=== PATIENT | male | born 1975 | race African-American/Black ===

== ENCOUNTER 2018-08-01 12:19 | Inpatient (IN) ==
[2018-08-01] MEDS ORDERED: SODIUM CHLORIDE 0.9% 1000ML 1,000 ML IV ONE (12:34)
[2018-08-01] MEDS ORDERED: ONDANSETRON INJ 2 MG/ML 2 ML VIAL IV STA (12:34)
[2018-08-01 13:02] LABS: Basophils # (auto) 0.02 K/uL (0-0.2); Basophils % (auto) 0.3 %; Eosinophils # (auto) 0.29 K/uL (0-0.5); Eosinophils % (auto) 4.2 %; Hematocrit (blood only) 40.8 % (42-52); Hemoglobin 14.9 g/dL (14.0-18.0); Immature Granulocytes # (auto) 0.01 K/uL (0.00-0.02); Immature Granulocytes % (auto) 0.1 %; Lymphocytes # (auto) 1.61 K/uL (1.2-3.4); Lymphocytes % (auto) 23.5 %; Mean Corpuscular Hgb Conc 36.5 g/dL (32-36); Mean Corpuscular Volume 79.5 fL (80-100); Mean Platelet Volume 11.2 fL (7.4-10.4); Monocytes # (auto) 0.43 K/uL (0.11-0.59); Monocytes % (auto) 6.3 %; Neutrophils % (auto) 65.6 %; Platelet Count 309 K/uL (130-400); RDW Coefficient of Variation 12.2 % (11.5-14.5); RDW Standard Deviation 35.3 fL (36.4-46.3); Red Blood Count 5.13 M/uL (4.7-6.1); White Blood Count 6.86 K/uL (4.8-10.8)
[2018-08-01 13:31] LABS: BUN Creatinine Ratio 20.3 (10-20); Calcium 10.2 mg/dl (8.5-10.1); Creatinine Clr Calc Pharmacy 43.8 ml/min; Est GFR (African American) 43.8; Est GFR (Non-African American) 37.8
[2018-08-01 13:57] LABS: Appearance Urine Clear (Clear); Bilirubin Urine Negative (Negative); Blood Urine Trace (Negative); Color Urine Yellow; Glucose Urine UA 3+ (Negative); Ketones Urine 2+ (Negative); Leukocyte Esterase Urine Negative (Negative); Nitrite Urine Negative (Negative); Protein Urine Negative (Negative); Specific Gravity Urine 1.015 (1.000-1.030); Urobilinogen Urine Negative (Negative); pH Urine 5.5 (4.5-7.5)
[2018-08-01 14:08] LABS: Beta-Hydroxybutyrate 58.01 mg/dl (0.2-2.81)
[2018-08-01] MEDS ORDERED: SEVERE STRESS LEVEL ONE (14:10)
[2018-08-01] MEDS ORDERED: DKA GOAL RANGE 150-250 mg/dl ONE (14:10)
[2018-08-01 14:11] LABS: Bacteria Urine Negative (Negative); Epithelial Cell Urine 0-5 /lpf (0-5); RBC Urine 0-4 /hpf (0-4); WBC Urine 0-5 /hpf (0-5)
[2018-08-01] MEDS ORDERED: SODIUM CHLORIDE 0.9% 1000ML 1,000 ML IV SCH (14:15)
[2018-08-01] MEDS ORDERED: NSS + 20MEQ KCL 20 MEQ/1,000 ML BAG IV SCH (14:30)
[2018-08-01] MEDS: INSULIN REGULAR 250 UNITS in SODIUM CHLORIDE 0.9% 247.5 ML IV SCH (14:51)
[2018-08-01 15:06] LABS: Base Excess VBG -2.5 mEq/L; HCO3 VBG 25 mmol/L; PCO2 VBG 51 mmHg (38-50); PO2 VBG 31 mmHg
--- NOTE | 2018-08-01 15:12 | History & Physical Report ---
Date of Service August 01, 2018 Assessment & Plan (1) Hyperosmolarity due to secondary diabetes mellitus: Pt with hx recently diagnosed DM II and new onset metformin use presented to ER with c/o weakness, fatigue x 3 days with hyperglycemia readings at home. Pt had been fasting for adan starting 07/22/18 and stopped fasting 2-3 days ago upon symptom onset. In ER pt afebrile, P: 112 down to 88, R: 20, BP: 148/105, 100% on RA WBC: 6.8, H/H: 14.9/40.8, Na corrected to 135 with glucose of 604, CO2: 25, K: 4.0, A, beta-hydroxybutyric acid: 58, UA: 3+ glucose, 2+ ketones; VBG: pH: 7.3, pCO2: 51, pO2: 31, HCO3: 25 HHS with starvation ketosis Following DKA/HSS protocol pharmacy glycemic consult serial prp to monitor electrolytes repeat phosphorus and magnesium labs npo until gap closed monitor vbgs (2) YULIA (acute kidney injury): Cr: 2.06. Baseline Cr: 1.1 with GFR >60 -IVF -monitor renal functions -avoid nephrotoxic agents when possible (3) Diabetes mellitus, type II: A1c: 7.6 on 06/20/18 -hold metformin -insulin as above (4) HTN (hypertension): BP elevated in ER at 148/105, down to 132/75 -hold lisinopril, HCTZ with YULIA -continue metoprolol (5) Dyslipidemia: -continue atorvastatin DVT Prophylaxis -SCDs Follows with Dr Perez for routine care Pt was seen with Dr Giles. See addendum History of Present Illness Chief Complaint: Pt is 43 y/o M with PMH HTN, DM II presented to ER with c/o weakness and hyperglycemia. Pt reports on 07/22/18 he started fasting for ada. Pt states was feeling a little more tired. The past 3 days patient has reported increased fatigue and generalized weakness. Also complaining of urinary frequency, some blurry vision. He states he took his blood sugars at home and the meter was reading "high". Patient states was continuing to take his metformin. He stopped fasting 2-3 days ago. Patient was started on HCTZ 25 mg of metoprolol 50 mg in 06/2017 for HTN. He was then started on metformin 500 mg twice daily x one week then 1000mg twice daily and lisinopril 10mg daily on 06/18 06/04. Patient states when started taking metformin he was having some abdominal cramping which has improved. Reports he has been having some constipation last BM 4 days ago. Denies any nausea or vomiting. Denies fever/chills, diaphoresis, HOLLIDAY, dizziness, syncope, neck pain, CP, SOB, orthopnea, palpitations, cough, sore throat, choking, otalgia, rhinorrhea, paresthesias, weakness, extremity weakn ess, extremity edema, rashes, hematuria, dysuria. Primary Care Provider: Pat Perez DO Allergies Allergy/AdvReac Type Severity Reaction Status Date / Time hydroxychloroquine Allergy Unknown Verified 08/01/18 13:49 Home Medications Home Medications Medication Instructions Recorded Confirmed Type aspirin [Aspir-81] 81 mg PO QAM 08/01/18 08/01/18 History atorvastatin 40 mg PO QAM 08/01/18 08/01/18 History hydrochlorothiazide 25 mg PO QAM 08/01/18 08/01/18 History lisinopril 10 mg PO QAM 08/01/18 08/01/18 History metformin 1,000 mg PO BIDM 08/01/18 08/01/18 History metoprolol succinate 50 mg PO QAM 08/01/18 08/01/18 History Past Med/Surg History Medical History Dyslipidemia (Chronic) Diabetes mellitus, type II (Chronic) HTN (hypertension) (Chronic) Shoulder pain, right Surgical History No history of previous surgery (Chronic) Family History Other Diabetes Social History Preferred Language: [place] Feels Safe at Home: Yes Smoking Status: Former smoker Hx Alcohol Use: No Hx Substance Use: No Review of Systems Review of Systems: All systems reviewed & are unremarkable except as noted in HPI & below Physical Exam Physical Exam: General: no acute distress, WDWN Head: normocephalic, atraumatic Eyes: PERRL, EOM's intact, conjunctiva non-injected, anicteric ENT: normal inspection external ears, nose, mucous membranes dry Neck: supple, trachea midline Lungs: clear, no respiratory distress, no wheezing/rhonchi/rales CV: RRR, no murmur, no pretibial edema Abd: normal BS, soft, non-tender Ext: no cyanosis, no calf tenderness Neuro: A&O x 3, no focal deficits noted, normal affect Skin: warm, dry Results & Data Vital Signs (Past 12 Hours) Vital Signs Temp Pulse Pulse Resp BP BP Pulse Ox 08/01/18 14:55 88 17 132/75 98 08/01/18 14:31 84 14 176/101 H 97 08/01/18 14:30 86 14 94 08/01/18 14:01 90 15 142/94 H 98 08/01/18 14:00 72 12 08/01/18 13:31 87 15 96 08/01/18 13:30 82 22 96 08/01/18 13:02 90 22 99 08/01/18 13:01 88 20 116/82 99 08/01/18 13:00 97 H 29 H 98 08/01/18 12:56 89 13 124/92 98 08/01/18 12:51 85 16 97 08/01/18 12:40 83 95 H 19 124/92 124/92 98 08/01/18 12:34 36.5 C 08/01/18 12:22 112 H 20 148/105 H 100 Laboratory Results Short CBC 08/01/18 Range/Units 12:48 WBC 6.86 (4.8-10.8) K/uL Hgb 14.9 (14.0-18.0) g/dL Hct 40.8 L (42-52) % Plt Count 309 (130-400) K/uL BMP 08/01/18 12:48 Sodium 127 L Potassium 4.0 Chloride 84 L Carbon Dioxide 25 BUN 42 H Creatinine 2.06 H Glucose 604 H* Calcium 10.2 H Urine 08/01/18 Range/Units 13:45 Urine Color Yellow Urine Appearance Clear (Clear) Urine pH 5.5 (4.5-7.5) Ur Specific [place] 1.015 (1.000-1.030) Urine Protein Negative (Negative) Urine Glucose (UA) 3+ H (Negative) Supervising Physician Co-Signing Physician Notes Patient is a 43-year-old male with history of diabetes, hypertension and other problems presents with history of generalized weakness and elevated blood sugar levels since last few days. He was fasting for Ramadan initially but felt very weak and tired so started eating again since last 3 days. He also states having increased urinary frequency, blurred vision. He was recently diagnosed to have diabetes by his PCP and was started on metformin. Denies any chest pain, shortness of breath, fever, chills, dysuria, diarrhea, abdominal pain. Patient was noted to have elevated creatinine levels at 2.06, his blood sugar levels are in 600s. His anion gap is elevated at 18. Bicarbonate levels are within normal range. On exam patient is moderately built nourished, no apparent distress, normocephalic atraumatic, lungs are clear to auscultation, S1-S2, no murmur, abdomen soft nontender, neurologically no focal deficits, no pedal edema. Patient is admitted for management of HHS, YULIA, could have component of starvation ketosis. Agree with started Insulin ggt, IV fluids. Monitor electrolytes, renal function and acidosis. Keep him NPO for now. Agree with holding JEANNE, Metformin and HCTZ. Pharmacy consulted for glycemic management.
[2018-08-01 15:17] LABS: Oxygen Saturation VBG < 60.0 %
[2018-08-01 15:40] LABS: BUN Creatinine Ratio 21.6 (10-20); Calcium 9.7 mg/dl (8.5-10.1); Est GFR (African American) 52.6; Est GFR (Non-African American) 45.4; Phosphorus 5.5 mg/dl (2.5-4.9)
--- NOTE | 2018-08-01 16:35 | Emergency Department Note ---
Entered by Justo Cuenca acting as a scribe for History of Present Illness General Chief complaint: Weakness Stated complaint: weakness, blurry eyes, nausea, cold Time Seen by Provider: 08/01/18 12:28 Source: patient Mode of arrival: ambulatory History of Present Illness Provider complaint: Weakness Onset (ago): day(s) 7 Location: head Radiation: abdomen Pain Consistency: + constant Quality: + other (Weakness) Associated symptoms: + cough, + nausea/vomiting and + weakness Patient is a 43 year old male who presents himself to the ER with complaint of weakness beginning seven days ago. Patient is currently fasting for the month of in in the Islamic zoroastrianism. Before adan started he was diagnosed with diabetes. For the last weak patient has been feeling severely weak and having constant associated symptoms of nausea and coughs. Patient reports not having an appetite and that he has not fallen or hit his head. He states he has been having difficulty with bowel movements and that the pain has been radiating to his abdomen. Home Medications Home Medications Medication Instructions Recorded Confirmed Type aspirin [Aspir-81] 81 mg PO QAM 08/01/18 08/01/18 History atorvastatin 40 mg PO QAM 08/01/18 08/01/18 History hydrochlorothiazide 25 mg PO QAM 08/01/18 08/01/18 History lisinopril 10 mg PO QAM 08/01/18 08/01/18 History metformin 1,000 mg PO BIDM 08/01/18 08/01/18 History metoprolol succinate 50 mg PO QAM 08/01/18 08/01/18 History Allergies Allergy/AdvReac Type Severity Reaction Status Date / Time hydroxychloroquine Allergy Unknown Verified 08/01/18 13:49 Past Med/Surg History Medical History Dyslipidemia (Chronic) Diabetes mellitus, type II (Chronic) HTN (hypertension) (Chronic) Shoulder pain, right Surgical History No history of previous surgery (Chronic) Family History Other Diabetes Social History Preferred Language: Bolivian Feels Safe at Home: Yes Smoking Status: Former smoker Hx Alcohol Use: No Hx Substance Use: No Review of Systems See HPI for pertinent positives & negatives. and A total of 10 systems reviewed and were otherwise negative Physical Exam Vital Signs Vital Signs - 24 hr 08/01/18 12:22 08/01/18 12:34 08/01/18 12:40 Temperature 36.5 C Temperature Source Oral Sepsis Recent Fever Within 48 Hours No Sepsis New/Unexplained Change in Mental Status No Sepsis Action Taken by Nursing No Action Required Pulse Rate 112 H 83 Pulse Rate [Left Finger] 95 H Pulse Rate from SpO2 Sensor 85 Pulse Rhythm Regular Pulse Rhythm [Left Finger] Regular Pulse Strength Normal Respiratory Rate 20 19 Respiratory Effort / Characteristics Non-Labored Spontaneous Non-Labored Respiratory Depth Normal Normal Respiratory Pattern Regular Regular Blood Pressure 148/105 H 124/92 Blood Pressure [Left Arm] 124/92 Blood Pressure Mean 119 102 Blood Pressure Mean [Left Arm] 102 Blood Pressure Position Sitting Pulse Oximetry 100 98 Oxygen Delivery Method Room Air 08/01/18 12:51 08/01/18 12:56 08/01/18 13:00 Temperature Temperature Source Sepsis Recent Fever Within 48 Hours Sepsis New/Unexplained Change in Mental Status Sepsis Action Taken by Nursing Pulse Rate 85 89 97 H Pulse Rate [Left Finger] Pulse Rate from SpO2 Sensor 85 89 99 H Pulse Rhythm Pulse Rhythm [Left Finger] Pulse Strength Respiratory Rate 16 13 29 H Respiratory Effort / Characteristics Respiratory Depth Respiratory Pattern Blood Pressure 124/92 Blood Pressure [Left Arm] Blood Pressure Mean 102 Blood Pressure Mean [Left Arm] Blood Pressure Position Pulse Oximetry 97 98 98 Oxygen Delivery Method 08/01/18 13:01 08/01/18 13:02 08/01/18 13:30 Temperature Temperature Source Sepsis Recent Fever Within 48 Hours Sepsis New/Unexplained Change in Mental Status Sepsis Action Taken by Nursing Pulse Rate 88 90 82 Pulse Rate [Left Finger] Pulse Rate from SpO2 Sensor 90 92 H 82 Pulse Rhythm Pulse Rhythm [Left Finger] Pulse Strength Respiratory Rate 20 22 22 Respiratory Effort / Characteristics Respiratory Depth Respiratory Pattern Blood Pressure 116/82 Blood Pressure [Left Arm] Blood Pressure Mean 93 Blood Pressure Mean [Left Arm] Blood Pressure Position Pulse Oximetry 99 99 96 Oxygen Delivery Method 08/01/18 13:31 08/01/18 14:00 08/01/18 14:01 Temperature Temperature Source Sepsis Recent Fever Within 48 Hours Sepsis New/Unexplained Change in Mental Status Sepsis Action Taken by Nursing Pulse Rate 87 72 90 Pulse Rate [Left Finger] Pulse Rate from SpO2 Sensor 86 88 Pulse Rhythm Pulse Rhythm [Left Finger] Pulse Strength Respiratory Rate 15 12 15 Respiratory Effort / Characteristics Respiratory Depth Respiratory Pattern Blood Pressure 142/94 H Blood Pressure [Left Arm] Blood Pressure Mean 49 110 Blood Pressure Mean [Left Arm] Blood Pressure Position Pulse Oximetry 96 98 Oxygen Delivery Method 08/01/18 14:30 08/01/18 14:31 08/01/18 14:32 Temperature Temperature Source Sepsis Recent Fever Within 48 Hours Sepsis New/Unexplained Change in Mental Status Sepsis Action Taken by Nursing Pulse Rate 86 84 89 Pulse Rate [Left Finger] Pulse Rate from SpO2 Sensor 93 H 84 91 H Pulse Rhythm Pulse Rhythm [Left Finger] Pulse Strength Respiratory Rate 14 14 16 Respiratory Effort / Characteristics Respiratory Depth Respiratory Pattern Blood Pressure 176/101 H Blood Pressure [Left Arm] Blood Pressure Mean 126 Blood Pressure Mean [Left Arm] Blood Pressure Position Pulse Oximetry 94 97 96 Oxygen Delivery Method 08/01/18 14:55 08/01/18 15:00 08/01/18 15:01 Temperature Temperature Source Sepsis Recent Fever Within 48 Hours Sepsis New/Unexplained Change in Mental Status Sepsis Action Taken by Nursing Pulse Rate 83 87 85 Pulse Rate [Left Finger] 88 Pulse Rate from SpO2 Sensor 86 85 87 Pulse Rhythm Pulse Rhythm [Left Finger] Pulse Strength Respiratory Rate 15 17 14 Respiratory Effort / Characteristics Respiratory Depth Respiratory Pattern Blood Pressure 132/75 122/79 Blood Pressure [Left Arm] 132/75 Blood Pressure Mean 94 93 Blood Pressure Mean [Left Arm] 94 Blood Pressure Position Pulse Oximetry 98 96 99 Oxygen Delivery Method Room Air Physical Exam GENERAL: He is oriented to person, place, and time. He appears well-developed and well-nourished. He does not appear distressed. ____ HENT: Exam performed. - Head: Normocephalic and atraumatic. - Right Ear: External ear normal. No mastoid tenderness. - Left Ear: External ear normal. No mastoid tenderness. - Mouth/Throat: The oropharynx is clear and moist. No trismus in the jaw. No dental abscesses or uvula swelling. No oropharyngeal exudate or tonsillar abscesses. ____ EYES: Conjunctivae and EOM are normal. Pupils are equal, round, and reactive to light. Right eye exhibits no discharge. Left eye exhibits no discharge. No scleral icterus. ____ NECK: Normal range of motion. Neck supple. No JVD present. No spinous process tenderness present. No carotid bruit present. No rigidity. No tracheal deviation and normal range of motion present. No Brudzinski's sign and no Kernig's sign noted. ____ CV: Tachycardic. There is no peripheral edema. Palpable radial pulses bue. ____ PULM/CHEST: Effort normal and breath sounds normal. No respiratory distress. No stridor. He has no wheezes. He has no rales. - Chest Wall: He exhibits no tenderness. ____ ABD: The abdomen is soft. Bowel sounds are normal. He has no distension. No mass is present. There is no tenderness. There is no rebound, no guarding, no Murp hy's sign and no tenderness at McBurney's point. Rovsig negative MUSC/SKEL: Normal range of motion. There is no peripheral edema, tenderness or deformity. LYMPH: No cervical adenopathy. ____ NEURO: He is alert and oriented to person, place, and time. He has normal strength. No cranial nerve deficit or sensory deficit. Coordination and gait normal. GCS eye subscore is 4. GCS verbal subscore is 5. GCS motor subscore is 6. cerbellar tests wnl. ____ SKIN: Skin is warm and dry. He is not diaphoretic. ____ PSYCH: He has a normal mood and affect. His behavior is normal. Judgment and thought content normal. ____ Course 1229: The patient was evaluated in room A9. A complete history and physical exam was performed. 1240: Patient's POC glucose is critical high and unreadable on POC machine. 1412: The patients vital signs are stable. IV fluids have been administered not 1 L normal saline bolus. Labs show a glucose of 604, sodium 127, creatinine 2.06, anion gap of 18. Patient is in DKA. Patient will be started on insulin drip and be given repeat normal saline fluids with 20 mg once of KCl. I spoke to Ethel Patel PA-C regarding admitting the patient. She would like a venous blood gas to be done to see if the patient needs to go to the ICU. The patient will be admitted under the care of Dr. Giles. 1433: I spoke with Dr. Giles. The patient is stable to be admitted to telemetry. Reevaluation(s) Reevaluation #3: Ethel Patel PA-C Time: 14:12 Administered Medications Insulin Human Regular 250 (units/ Sodium Chloride) 250 mls @ 7 mls/hr IV .Q24H RAVI; Protocol Stop: 08/31/18 14:14 Last Titration: 08/01/18 16:10 Dose: 8.4 units/hr, 8.4 mls/hr Documented by: [id number] Cosigned by: [id number] Admin: 08/01/18 14:51 Dose: 7 units/hr, 7 mls/hr Documented by: [id number] Cosigned by: [id number] Potassium Chloride/Sodium Chloride (Normal Saline W/20 Meq Kcl) 20 meq in 1,000 mls @ 125 mls/hr IV .Q8H RAVI Stop: 08/31/18 14:29 Last Admin: 08/01/18 14:52 Dose: 125 mls/hr Documented by: [id number] Discontinued Medications Sodium Chloride (Nss 1000ml) 1,000 mls @ 999 mls/hr IV .Q1H1M ONE Stop: 08/01/18 13:34 Last Infusion: 08/01/18 14:54 Dose: 0 mls/hr Documented by: [id number] Admin: 08/01/18 13:02 Dose: 999 mls/hr Documented by: [id number] Ondansetron HCl (Zofran) 4 mg IV NOW STA Stop: 08/01/18 12:35 Last Admin: 08/01/18 13:04 Dose: 4 mg Documented by: [id number] Medical Decision Making Medical Records Attestation: I reviewed the patient's medical records. Home Medications Current Medication List: was personally reviewed by me Laboratory Data Attestation: I reviewed the patient's lab results. Result diagrams: 08/01/18 12:48 08/01/18 14:54 Lab Results 08/01/18 08/01/18 08/01/18 Range/Units 12:40 12:48 12:48 WBC 6.86 (4.8-10.8) K/uL RBC 5.13 (4.7-6.1) M/uL Hgb 14.9 (14.0-18.0) g/dL Hct 40.8 L (42-52) % MCV 79.5 L (80-100) fL MCH 29.0 (25-34) pg MCHC 36.5 H (32-36) g/dL RDW Std Deviation 35.3 L (36.4-46.3) fL RDW Coeff of Mandy 12.2 (11.5-14.5) % Plt Count 309 (130-400) K/uL MPV 11.2 H (7.4-10.4) fL Immature Gran % (Auto) 0.1 % Neut % (Auto) 65.6 % Lymph % (Auto) 23.5 % [place] % (Auto) 6.3 % Eos % (Auto) 4.2 % Baso % (Auto) 0.3 % Immature Gran # (Auto) 0.01 (0.00-0.02) K/uL Neut # (Auto) 4.50 (1.4-6.5) K/uL Lymph # (Auto) 1.61 (1.2-3.4) K/uL Victoria # (Auto) 0.43 (0.11-0.59) K/uL Eos # (Auto) 0.29 (0-0.5) K/uL Baso # (Auto) 0.02 (0-0.2) K/uL VBG pH (7.36-7.41) VBG pCO2 (38-50) mmHg VBG pO2 mmHg VBG HCO3 mmol/L VBG O2 Saturation % VBG Base Excess mEq/L Barometric Pressure mm/Hg Sodium 127 L (136-145) mmol/L Potassium 4.0 (3.5-5.1) mmol/L Chloride 84 L (98-107) mmol/L Carbon Dioxide 25 (21-32) mmol/L Anion Gap 18.0 H (3-11) BUN 42 H (7-18) mg/dl Creatinine 2.06 H (0.6-1.4) mg/dl Est Cr Clr Drug Dosing 43.8 ml/min Est GFR ( Amer) 43.8 Est GFR (Non-Af Amer) 37.8 BUN/Creatinine Ratio 20.3 H (10-20) Glucose 604 H* (70-99) mg/dl POC Glucose > 600 H* (70-99) Calcium 10.2 H (8.5-10.1) mg/dl Phosphorus (2.5-4.9) mg/dl Magnesium (1.8-2.4) mg/dl Beta-Hydroxybutyric Acd 58.01 H (0.2-2.81) mg/dl Specimen Hemolysis Urine Color Urine Appearance (Clear) Urine pH (4.5-7.5) Ur Specific [place] (1.000-1.030) Urine Protein (Negative) Urine Glucose (UA) (Negative) Urine Ketones (Negative) Urine Blood (Negative) Urine Nitrite (Negative) Urine Bilirubin (Negative) Urine Urobilinogen (Negative) Ur Leukocyte Esterase (Negative) Urine RBC (0-4) /hpf Urine WBC (0-5) /hpf Ur Epithelial Cells (0-5) /lpf Urine Bacteria (Negative) 08/01/18 08/01/18 08/01/18 Range/Units 13:45 14:06 14:46 WBC (4.8-10.8) K/uL RBC (4.7-6.1) M/uL Hgb (14.0-18.0) g/dL Hct (42-52) % MCV (80-100) fL MCH (25-34) pg MCHC (32-36) g/dL RDW Std Deviation (36.4-46.3) fL RDW Coeff of Mandy (11.5-14.5) % Plt Count (130-400) K/uL MPV (7.4-10.4) fL Immature Gran % (Auto) % Neut % (Auto) % Lymph % (Auto) % [place] % (Auto) % Eos % (Auto) % Baso % (Auto) % Immature Gran # (Auto) (0.00-0.02) K/uL Neut # (Auto) (1.4-6.5) K/uL Lymph # (Auto) (1.2-3.4) K/uL [place] # (Auto) (0.11-0.59) K/uL Eos # (Auto) (0-0.5) K/uL Baso # (Auto) (0-0.2) K/uL VBG pH 7.30 L (7.36-7.41) VBG pCO2 51 H (38-50) mmHg VBG pO2 31 mmHg VBG HCO3 25 mmol/L VBG O2 Saturation < 60.0 % VBG Base Excess -2.5 mEq/L Barometric Pressure 728.5 mm/Hg Sodium (136-145) mmol/L Potassium (3.5-5.1) mmol/L Chloride (98-107) mmol/L Carbon Dioxide (21-32) mmol/L Anion Gap (3-11) BUN (7-18) mg/dl Creatinine (0.6-1.4) mg/dl Est Cr Clr Drug Dosing ml/min Est GFR ( Amer) Est GFR (Non-Af Amer) BUN/Creatinine Ratio (10-20) Glucose (70-99) mg/dl POC Glucose 555 H* (70-99) Calcium (8.5-10.1) mg/dl Phosphorus (2.5-4.9) mg/dl Magnesium (1.8-2.4) mg/dl Beta-Hydroxybutyric Acd (0.2-2.81) mg/dl Specimen Hemolysis Urine Color Yellow Urine Appearance Clear (Clear) Urine pH 5.5 (4.5-7.5) Ur Specific [place] 1.015 (1.000-1.030) Urine Protein Negative (Negative) Urine Glucose (UA) 3+ H (Negative) Urine Ketones 2+ H (Negative) Urine Blood Trace H (Negative) Urine Nitrite Negative (Negative) Urine Bilirubin Negative (Negative) Urine Urobilinogen Negative (Negative) Ur Leukocyte Esterase Negative (Negative) Urine RBC 0-4 (0-4) /hpf Urine WBC 0-5 (0-5) /hpf Ur Epithelial Cells 0-5 (0-5) /lpf Urine Bacteria Negative (Negative) 08/01/18 08/01/18 08/01/18 Range/Units 14:54 15:44 15:53 WBC (4.8-10.8) K/uL RBC (4.7-6.1) M/uL Hgb (14.0-18.0) g/dL Hct (42-52) % MCV (80-100) fL MCH (25-34) pg MCHC (32-36) g/dL RDW Std Deviation (36.4-46.3) fL RDW Coeff of Mandy (11.5-14.5) % Plt Count (130-400) K/uL MPV (7.4-10.4) fL Immature Gran % (Auto) % Neut % (Auto) % Lymph % (Auto) % [place] % (Auto) % Eos % (Auto) % Baso % (Auto) % Immature Gran # (Auto) (0.00-0.02) K/uL Neut # (Auto) (1.4-6.5) K/uL Lymph # (Auto) (1.2-3.4) K/uL [place] # (Auto) (0.11-0.59) K/uL Eos # (Auto) (0-0.5) K/uL Baso # (Auto) (0-0.2) K/uL VBG pH (7.36-7.41) VBG pCO2 (38-50) mmHg VBG pO2 mmHg VBG HCO3 mmol/L VBG O2 Saturation % VBG Base Excess mEq/L Barometric Pressure mm/Hg Sodium 128 L (136-145) mmol/L Potassium 4.0 (3.5-5.1) mmol/L Chloride 87 L (98-107) mmol/L Carbon Dioxide 24 (21-32) mmol/L Anion Gap 17.0 H (3-11) BUN 38 H (7-18) mg/dl Creatinine 1.77 H (0.6-1.4) mg/dl Est Cr Clr Drug Dosing 51.0 ml/min Est GFR ( Amer) 52.6 Est GFR (Non-Af Amer) 45.4 BUN/Creatinine Ratio 21.6 H (10-20) Glucose 494 H* (70-99) mg/dl POC Glucose 504 H* 489 H* (70-99) Calcium 9.7 (8.5-10.1) mg/dl Phosphorus 5.5 H (2.5-4.9) mg/dl Magnesium 3.0 H (1.8-2.4) mg/dl Beta-Hydroxybutyric Acd (0.2-2.81) mg/dl Specimen Hemolysis Urine Color Urine Appearance (Clear) Urine pH (4.5-7.5) Ur Specific [place] (1.000-1.030) Urine Protein (Negative) Urine Glucose (UA) (Negative) Urine Ketones (Negative) Urine Blood (Negative) Urine Nitrite (Negative) Urine Bilirubin (Negative) Urine Urobilinogen (Negative) Ur Leukocyte Esterase (Negative) Urine RBC (0-4) /hpf Urine WBC (0-5) /hpf Ur Epithelial Cells (0-5) /lpf Urine Bacteria (Negative) Imaging Data Attestation: I personally reviewed and interpreted this imaging study as follows: ECG Data Attestation: I personally reviewed and interpreted this ECG as follows: Indication: other (Weakness) Rate (beats per minute): 85 Rhythm: normal sinus Findings: + other (T wave inversion in lead 3 and AVF ); no ST elevation Blood Pressure Blood Pressure Findings: Normal blood pressure [facility] Narrative 1229: The patient was evaluated in room A9. A complete history and physical exam was performed. 1240: Patient's POC glucose is critical high and unreadable on POC machine. 1412: The patients vital signs are stable. IV fluids have been administered not 1 L normal saline bolus. Labs show a glucose of 604, sodium 127, creatinine 2.06, anion gap of 18. Patient is in DKA. Patient will be started on insulin drip and be given repeat normal saline fluids with 20 mg once of KCl. I spoke to Ethel Patel PA-C regarding admitting the patient. She would like a venous blood gas to be done to see if the patient needs to go to the ICU. The patient will be admitted under the care of Dr. Giles. 1433: I spoke with Dr. Giles. The patient is stable to be admitted to telemetry. Impression & Plan DKA (diabetic ketoacidoses), Acute kidney injury Critical Care Time I have personally spent 54 minutes of critical care time in the direct management of this patient. This includes bedside care, interpretation of diagnostic studies, and testing, discussion with consultants, patient, and family members, and other required patient management activities. This 54 minutes is in excess of all separately billable procedures. Critical Care Time: Yes Total Critical Care Time: 54 Discharge Plan Visit Data Chief Complaint: Weakness Stated Complaint: weakness, blurry eyes, nausea, cold ED Provider: Abel Awad Discharge Problem: DKA (diabetic ketoacidoses), Acute kidney injury Patient Disposition: Being Evaluated by Hospitalist Forms Stand Alone Forms: My [facility] Prescriptions Prescriptions: No Action metoprolol succinate 50 mg tablet extended release 24 hr 50 mg PO QAM RF: 0 aspirin [Aspir-81] 81 mg Tablet,Delayed Release (Dr/Ec) 81 mg PO QAM RF: 0 lisinopril 10 mg tablet 10 mg PO QAM RF: 0 hydrochlorothiazide 25 mg tablet 25 mg PO QAM RF: 0 atorvastatin 40 mg tablet 40 mg PO QAM RF: 0 metformin 500 mg tablet 1,000 mg PO BIDM RF: 0 Referrals Referrals: Pat Perez DO [Primary Care Provider] - Discharge Problem: DKA (diabetic ketoacidoses) Qualifiers: Diabetes mellitus type: type 2 Diabetes mellitus complication detail: without coma Qualified Code(s): E11.10 - Type 2 diabetes mellitus with ketoacidosis without coma The scribe's documentation has been prepared under my direction and personally reviewed by me in its entirety. I confirm that the note above accurately reflects all work, treatment, procedures, and medical decision making performed by me.
[2018-08-01] MEDS ORDERED: PHARMACY GLYCEMIC MGMT CONSULT PRN (17:44)
[2018-08-01 17:52] LABS: iSTAT Creatinine 1.8 mg/dl (0.6-1.3); iSTAT Hemoglobin 15.6 g/dl (14.0-18.0); iSTAT Ionized Calcium 1.16 mmol/l (1.12-1.32)
[2018-08-01] MEDS ORDERED: PENDING D5 1/2NS+20mEq KCL IVF SCH (18:00)
[2018-08-01] MEDS: ACETAMINOPHEN 325 MG TAB PO PRN (18:42)
[2018-08-01 19:19] LABS: BUN Creatinine Ratio 20.7 (10-20); Calcium 9.5 mg/dl (8.5-10.1); Creatinine Clr Calc Pharmacy 47.8 ml/min; Est GFR (African American) 48.6; Est GFR (Non-African American) 41.9; Phosphorus 3.1 mg/dl (2.5-4.9); Potassium 3.4 mmol/L (3.5-5.1)
[2018-08-01] MEDS ORDERED: DEXTROSE 50% 50 ML SYRINGE IV ONE (21:10)
[2018-08-01] MEDS: D5NSS + 20MEQ KCL 20 MEQ/1,000 ML BAG IV SCH (21:21)
[2018-08-01] MEDS: ONDANSETRON INJ 2 MG/ML 2 ML VIAL IV PRN (21:43)
[2018-08-01 23:20] LABS: Base Excess VBG 7.6 mEq/L; HCO3 VBG 35 mmol/L; PCO2 VBG 59 mmHg (38-50); PO2 VBG 20 mmHg; pH VBG 7.39 (7.36-7.41)
[2018-08-01 23:28] LABS: Oxygen Saturation VBG < 60.0 %
[2018-08-01 23:34] LABS: Albumin Level 3.9 gm/dl (3.4-5.0); BUN Creatinine Ratio 20.4 (10-20); Calcium 9.2 mg/dl (8.5-10.1); Creatinine Clr Calc Pharmacy 51.6 ml/min; Est GFR (African American) 53.3; Potassium 3.8 mmol/L (3.5-5.1)
[2018-08-01 23:37] LABS: Albumin Globulin Ratio 1.1 (0.9-2); Bilirubin,Total 1.4 mg/dl (0.2-1); Globulin 3.7 gm/dl (2.5-4.0); Total Protein 7.6 gm/dl (6.4-8.2)
[2018-08-01] MEDS: INSULIN ASPART 100 UNITS/ML 3 ML PEN SC SCH ×2 (23:40→23:41)
[2018-08-01] MEDS ORDERED: CARBOHYDRATES FOR HYPOGLYCEMIA PO PRN (23:45)
[2018-08-01] MEDS ORDERED: GLUCOSE 40% GEL 15 GM TUBE PO PRN (23:45)
[2018-08-01] MEDS ORDERED: GLUCAGON FOR INJ 1 MG VIAL SQ PRN (23:45)
[2018-08-01] MEDS ORDERED: GLUCOSE 10 TABS/TUBE PO PRN (23:45)
[2018-08-01] MEDS ORDERED: DEXTROSE 50% 50 ML SYRINGE IV PRN (23:45)
[2018-08-02] MEDS: ACETAMINOPHEN 325 MG TAB PO PRN ×2 (01:03→17:49)
[2018-08-02] MEDS: D5NSS + 20MEQ KCL 20 MEQ/1,000 ML BAG IV SCH (04:16)
[2018-08-02 04:35] LABS: Basophils # (auto) 0.01 K/uL (0-0.2); Basophils % (auto) 0.2 %; Eosinophils # (auto) 0.39 K/uL (0-0.5); Eosinophils % (auto) 7.4 %; Hematocrit (blood only) 36.4 % (42-52); Hemoglobin 13.8 g/dL (14.0-18.0); Lymphocytes # (auto) 1.53 K/uL (1.2-3.4); Mean Corpuscular Hgb Conc 37.9 g/dL (32-36); Mean Corpuscular Volume 78.8 fL (80-100); Mean Platelet Volume 10.3 fL (7.4-10.4); Monocytes # (auto) 0.53 K/uL (0.11-0.59); Neutrophils # (auto) 2.82 K/uL (1.4-6.5); Neutrophils % (auto) 53.4 %; Platelet Count 253 K/uL (130-400); RDW Coefficient of Variation 12.3 % (11.5-14.5); RDW Standard Deviation 35.5 fL (36.4-46.3); Red Blood Count 4.62 M/uL (4.7-6.1); White Blood Count 5.28 K/uL (4.8-10.8)
[2018-08-02 04:42] LABS: Base Excess VBG 2.1 mEq/L; HCO3 VBG 28 mmol/L; PCO2 VBG 48 mmHg (38-50); PO2 VBG 32 mmHg; pH VBG 7.39 (7.36-7.41)
[2018-08-02 04:43] LABS: Oxygen Saturation VBG < 60.0 %
[2018-08-02 04:51] LABS: Potassium 3.6 mmol/L (3.5-5.1)
[2018-08-02 04:52] LABS: Albumin Level 3.7 gm/dl (3.4-5.0); BUN Creatinine Ratio 19.7 (10-20); Calcium 8.5 mg/dl (8.5-10.1); Creatinine Clr Calc Pharmacy 57.5 ml/min; Est GFR (African American) 60.8; Est GFR (Non-African American) 52.5
[2018-08-02 04:55] LABS: Albumin Globulin Ratio 1.1 (0.9-2); Bilirubin,Total 1.3 mg/dl (0.2-1); Globulin 3.5 gm/dl (2.5-4.0); Phosphorus 2.4 mg/dl (2.5-4.9); Total Protein 7.2 gm/dl (6.4-8.2)
[2018-08-02] MEDS ORDERED: INSULIN GLARGINE SOLOSTAR 100 UNITS/ML 3 ML PEN SC STA ×3 (07:43→20:32)
[2018-08-02] MEDS: ASPIRIN 81 MG ECTAB PO SCH (08:14)
[2018-08-02] MEDS: ATORVASTATIN 40 MG TAB PO SCH (08:14)
[2018-08-02] MEDS: METOPROLOL SUCC 50MG EXT REL TAB PO SCH (08:15)
[2018-08-02] MEDS ORDERED: MAGNESIUM HYDROXIDE SUSP 30 ML UDC PO ONE (08:33)
[2018-08-02] MEDS ORDERED: POLYETHYLENE (MIRALAX) 17 GM PACK PO PRN (08:33)
[2018-08-02] MEDS: INSULIN ASPART 100 UNITS/ML 3 ML PEN SC SCH ×4 (09:26→20:52)
[2018-08-02 11:42] LABS: Albumin Level 3.5 gm/dl (3.4-5.0); BUN Creatinine Ratio 16.9 (10-20); Calcium 8.2 mg/dl (8.5-10.1); Creatinine Clr Calc Pharmacy 55.7 ml/min; Est GFR (African American) 58.5; Est GFR (Non-African American) 50.5; Potassium 3.5 mmol/L (3.5-5.1)
[2018-08-02 11:44] LABS: Albumin Globulin Ratio 1.1 (0.9-2); Bilirubin,Total 1.3 mg/dl (0.2-1); Globulin 3.2 gm/dl (2.5-4.0); Total Protein 6.7 gm/dl (6.4-8.2)
[2018-08-02] MEDS: NSS + 20MEQ KCL 20 MEQ/1,000 ML BAG IV SCH (11:58)
--- NOTE | 2018-08-02 13:27 | Hospitalist Progress Note ---
Date of Service August 02, 2018 Assessment & Plan (1) Hyperosmolarity due to secondary diabetes mellitus: Pt with hx recently diagnosed DM II and new onset metformin use presented to ER with c/o weakness, fatigue x 3 days with hyperglycemia readings at home. Pt had been fasting for Ramadan starting 07/22/18 and stopped fasting 2-3 days ago upon symptom onset. In ER pt afebrile, P: 112 down to 88, R: 20, BP: 148/105, 100% on RA (WBC: 6.8, H/H: 14.9/40.8, Na corrected to 135 with glucose of 604, CO2: 25, K: 4.0, A, beta-hydroxybutyric acid: 58, UA: 3+ glucose, 2+ ketones; VBG: pH: 7.3, pCO2: 51, pO2: 31, HCO3: 25) Diabetic hyperglycemic hyperosmolar syndrome with starvation ketosis on admission -the anion gap has closed with IV fluids and insulin -management of Diabetes Mellitus Type II with hyperglycemia as described below (2) YULIA (acute kidney injury): -Creatinine is 2.06 on admission with Baseline Cr: 1.1 with GFR >60 -creatinine trending down with IV fluids, continue IV fluids (3) Diabetes mellitus, type II: Diabetes Mellitus Type with hyperglycemia and not on exterminator helper current use of insulin -outpatient HbA1c 7.6 on 06/20/18 and was on metformin at home -admission glucose above 600 on 08/01/18 -patient was started on insulin drip on 08/01/18 and continued to 08/02/18 and at this time pharmacy glycemic control to be asked to transition patient to subcutaneous insulin alone -HbA1c on 08/02/18 is very high as 12.1 and will repeat HbA1c on 08/03/18 to see if this is accurate and not lab error -ui ux engineer requested as patient likely needs insulin on discharge -patient will need follow up to eye clinic for diabetic management of vision as outpatient Dyslipidemia -continue atorvastatin (4) HTN (hypertension): blood pressure controlled -continue to hold lisinopril and hold HCTZ because of acute kidney injury -continue metoprolol (5) Dyslipidemia: -continue atorvastatin DVT Prophylaxis -SCDs Subjective Patient seen and examined at bedside this AM on insulin drip. Patient baseline mental status. denies chest pain. denies shortness of breath. denies fever. no vomiting. no dizziness. no lightheadedness. Physical Exam Constitutional: WD/WN, vitals as above Eyes: PERRL, conjunctivae normal, anicteric sclerae EOM intact bilaterally ENMT: external ear and nose normal, oropharynx normal Neck: trachea midline, no thyromegaly normal visual inspection Respiratory: normal respiratory effort, lungs clear to auscultation Cardiovascular: RRR, no murmur, no edema Gastrointestinal (Abdomen): normal bowel sounds, soft, nontender, no hepatosplenomegaly Musculoskeletal: no cyanosis or clubbing, extremities motor strength 5/5 Head/Neck/Chest: normocephalic and head atraumatic Neurologic: PERRL, EOMI, accommodation nl, no face palsy, no dysarthria CN's II-XI intact bilaterally Psychiatric: A+Ox3, euthymic affect Results & Data Vital Signs (Past 12 Hours) Vital Signs Temp Pulse Resp BP BP Pulse Ox 08/02/18 11:26 36.5 C 85 18 119/81 95 08/02/18 08:00 108/69 96 08/02/18 07:17 36.4 C L 78 19 99/63 L 97 08/02/18 03:43 36.4 C L 80 17 112/76 100
--- NOTE | 2018-08-02 13:50 | Pharmacy Report ---
Glycemic Control Consultation - Date of Service August 02, 2018 - Scope Scope: Glycemic Pharmacist consulted by Pita Valenzuela on 08/01/18 for glycemic control and to write orders per [facility] inpatient glycemic control protocol - Objective Weight: 74.5 kg Accuchecks BSG (last 24hrs): 08/01/18 08/01/18 08/01/18 12:40 12:54 14:06 Glucose POC Glucose > 600 H* 555 H* POC Glucose (other) 612 H* 08/01/18 08/01/18 08/01/18 14:54 15:44 15:53 Glucose 494 H* POC Glucose 504 H* 489 H* POC Glucose (other) 08/01/18 08/01/18 08/01/18 16:55 18:01 18:22 Glucose 294 H POC Glucose 410 H* 361 H* POC Glucose (other) 08/01/18 08/01/18 08/01/18 19:06 19:57 21:02 Glucose POC Glucose 258 H 228 H 117 H POC Glucose (other) 08/01/18 08/01/18 08/01/18 21:26 22:30 23:02 Glucose 161 H POC Glucose 181 H 171 H POC Glucose (other) 08/01/18 08/01/18 08/02/18 23:29 23:47 00:02 Glucose POC Glucose 130 H 134 H 160 H POC Glucose (other) 08/02/18 08/02/18 08/02/18 00:30 01:30 02:37 Glucose POC Glucose 181 H 179 H 198 H POC Glucose (other) 08/02/18 08/02/18 08/02/18 04:20 04:23 06:25 Glucose 171 H POC Glucose 171 H 158 H POC Glucose (other) 08/02/18 08/02/18 08/02/18 08:37 10:27 11:13 Glucose 256 H POC Glucose 172 H 303 H* POC Glucose (other) 08/02/18 08/02/18 11:47 12:49 Glucose POC Glucose 268 H 212 H POC Glucose (other) Laboratory Data (last 24hrs): 08/01/18 08/01/18 08/01/18 12:48 14:54 18:22 Potassium 4.0 3.4 L Carbon Dioxide 24 29 Anion Gap 17.0 H 9.0 Creatinine 1.77 H 1.89 H Est Cr Clr Drug Dosing 51.0 47.8 Beta-Hydroxybutyric Acd 58.01 H 08/01/18 08/02/18 08/02/18 23:02 04:20 11:13 Potassium 3.8 3.6 3.5 Carbon Dioxide 34 H 32 28 Anion Gap 3.0 4.0 6.0 Creatinine 1.75 H 1.57 H 1.62 H Est Cr Clr Drug Dosing 51.6 57.5 55.7 Beta-Hydroxybutyric Acd HbA1c: 12.1 % (4.5-5.6) H 08/02/18 11:13 - Recent Pertinent Medications Outpatient Anti-diabetic Regimen: * Metformin 1gm BID * A1c = 12.1 % 08/02/18 - Assessment & Plan Assessment & Plan: ASSESSMENT: * Mr. Rodriguez was admitted 08/01/18 with HHS/ profound dehydration. Subsequently placed on an insulin gtt per glycemic pharmacist. IVFs were appropriately started. The insulin gtt continues. * A1C from 06/20/18 7.6%, today's A1C 12.1%. He is ordered a diet and eating appropriately. PLAN FOR INPATIENT GLYCEMIC CONTROL: * Continue Insulin gtt. Goal range: 150-250 * Basal insulin * Lantus 20 units given this AM to help transition off the gtt. Additional 10 units given this afternoon. * Please note that the plan above was derived based on current level of insulin resistance and hospital stress. These recommendations are appropriate for inpatient admission only. Plan of care upon discharge will need to be reassessed to avoid potential outpatient hypo/hyperglycemia. Thank you.
[2018-08-02] MEDS: INSULIN REGULAR 250 UNITS in SODIUM CHLORIDE 0.9% 247.5 ML IV SCH (18:56)
[2018-08-03] MEDS ORDERED: INSULIN HUMAN REGULAR PER UNIT 4 UNITS in SYRINGE 3.96 ML IV SCH (00:15)
[2018-08-03] MEDS: NSS + 20MEQ KCL 20 MEQ/1,000 ML BAG IV SCH (00:16)
[2018-08-03] MEDS: INSULIN ASPART 100 UNITS/ML 3 ML PEN SC SCH ×6 (00:21→21:10)
[2018-08-03] MEDS: ONDANSETRON INJ 2 MG/ML 2 ML VIAL IV PRN (06:08)
[2018-08-03 06:48] LABS: Basophils # (auto) 0.01 K/uL (0-0.2); Basophils % (auto) 0.2 %; Eosinophils # (auto) 0.29 K/uL (0-0.5); Eosinophils % (auto) 6.7 %; Hematocrit (blood only) 32.3 % (42-52); Hemoglobin 11.7 g/dL (14.0-18.0); Immature Granulocytes # (auto) 0.01 K/uL (0.00-0.02); Immature Granulocytes % (auto) 0.2 %; Lymphocytes # (auto) 1.86 K/uL (1.2-3.4); Lymphocytes % (auto) 42.8 %; Mean Corpuscular Hgb Conc 36.2 g/dL (32-36); Mean Platelet Volume 10.2 fL (7.4-10.4); Monocytes # (auto) 0.32 K/uL (0.11-0.59); Monocytes % (auto) 7.4 %; Neutrophils # (auto) 1.86 K/uL (1.4-6.5); Neutrophils % (auto) 42.7 %; Platelet Count 212 K/uL (130-400); RDW Coefficient of Variation 12.2 % (11.5-14.5); RDW Standard Deviation 35.9 fL (36.4-46.3); Red Blood Count 4.04 M/uL (4.7-6.1); White Blood Count 4.35 K/uL (4.8-10.8)
[2018-08-03 07:29] LABS: Albumin Globulin Ratio 1.1 (0.9-2); BUN Creatinine Ratio 13.9 (10-20); Bilirubin,Total 0.7 mg/dl (0.2-1); Calcium 7.7 mg/dl (8.5-10.1); Creatinine Clr Calc Pharmacy 74.6 ml/min; Est GFR (African American) 83.3; Est GFR (Non-African American) 71.9; Globulin 2.7 gm/dl (2.5-4.0); Potassium 2.9 mmol/L (3.5-5.1); Total Protein 5.7 gm/dl (6.4-8.2)
[2018-08-03] MEDS: METOPROLOL SUCC 50MG EXT REL TAB PO SCH (08:08)
[2018-08-03] MEDS: ASPIRIN 81 MG ECTAB PO SCH (08:08)
[2018-08-03] MEDS: ATORVASTATIN 40 MG TAB PO SCH (08:08)
[2018-08-03] MEDS ORDERED: POTASSIUM CHLORIDE 20 MEQ TABCR PO STA (08:34)
[2018-08-03 09:05] LABS: Magnesium 2.4 mg/dl (1.8-2.4); Phosphorus 2.4 mg/dl (2.5-4.9)
[2018-08-03] MEDS: POTASSIUM CHLORIDE / WTR 10 MEQ/100 ML PLCT IV SCH ×4 (09:19→13:23)
--- NOTE | 2018-08-03 10:34 | Hospitalist Progress Note ---
Date of Service August 03, 2018 Assessment & Plan (1) Hyperosmolarity due to secondary diabetes mellitus: Pt with hx recently diagnosed DM II and new onset metformin use presented to ER with c/o weakness, fatigue x 3 days with hyperglycemia readings at home. Pt had been fasting for Ramadan starting 07/22/18 and stopped fasting 2-3 days ago upon symptom onset. In ER pt afebrile, P: 112 down to 88, R: 20, BP: 148/105, 100% on RA (WBC: 6.8, H/H: 14.9/40.8, Na corrected to 135 with glucose of 604, CO2: 25, K: 4.0, A, beta-hydroxybutyric acid: 58, UA: 3+ glucose, 2+ ketones; VBG: pH: 7.3, pCO2: 51, pO2: 31, HCO3: 25) Diabetic hyperglycemic hyperosmolar syndrome with starvation ketosis on admission -the anion gap has closed with IV fluids and insulin -management of Diabetes Mellitus Type II with hyperglycemia as described below (2) YULIA (acute kidney injury): -Creatinine is 2.06 on admission with Baseline Cr: 1.1 with GFR >60 -patient's renal function improved after IV fluids -creatinine is 1.21 on 08/03/18 and IV fluids can be discontinued later today. encourage oral hydration (3) Diabetes mellitus, type II: Diabetes Mellitus Type with hyperglycemia and not on care home current use of insulin -outpatient HbA1c 7.6 on 06/20/18 and was on metformin at home -admission glucose above 600 on 08/01/18 -patient was started on insulin drip one 08/01/18 and continued to 08/02/18 -patient was transitioned to subcutaneous insulin starting 08/02/18 -HbA1c on 08/02/18 is very high as 12.1 and is being re-assessed. Patient does report of having sickle cell trait and perhaps this may have affected the lab results -patient was seen by conservation educator and patient when medically ready will be discharged on insulin -patient will have prescriptions of diabetes supplies Insulin pen needles - " (4mm) x 32G (90 per box and to get 2 boxes) OneTouch Verio test strips to check 4x/day. OneTouch Delica lancets to check 4x/day. -patient will need follow up to eye clinic for diabetic management of vision as outpatient Anemia Sickle cell trait -as per patient, he is aware he has history of sickle cell trait -patient denies sickle cell disease, never had any pain crisis or bone infarcts -trend hemoglobin levels as patient may have some anemia -no gross bleeding and no need for blood transfusion at this time Dyslipidemia -continue atorvastatin (4) HTN (hypertension): blood pressure controlled -continue to hold HCTZ because of acute kidney injury recently resolving -will resume lisinopril 10 mg daily -continue metoprolol (5) Dyslipidemia: -continue atorvastatin DVT Prophylaxis -SCDs Disposition: further inpatient monitoring, management of blood glucose, and potassium repletion Subjective Patient with glucose of 300 after dinner yesterday night. Glucose better controlled this AM. serum potassium is low at 2.9. Patient reports some lightheadedness today. denies vomiting. denies blood in the stool. patient reports he has sickle trait but not sickle cell disease. Physical Exam Constitutional: WD/WN, vitals as above Eyes: PERRL, conjunctivae normal, anicteric sclerae EOM intact bilaterally ENMT: external ear and nose normal, oropharynx normal Neck: trachea midline, no thyromegaly normal visual inspection Respiratory: normal respiratory effort, lungs clear to auscultation Cardiovascular: RRR, no murmur, no edema Gastrointestinal (Abdomen): normal bowel sounds, soft, nontender, no hepatosplenomegaly Musculoskeletal: no cyanosis or clubbing, extremities motor strength 5/5 Head/Neck/Chest: normocephalic and head atraumatic Neurologic: PERRL, EOMI, accommodation nl, no face palsy, no dysarthria CN's II-XI intact bilaterally Psychiatric: A+Ox3, euthymic affect Results & Data Vital Signs (Past 12 Hours) Vital Signs Temp Pulse Resp BP Pulse Ox 08/03/18 07:35 36.6 C 80 17 119/70 97 08/03/18 04:00 36.7 C 86 14 115/73 97 08/03/18 00:00 36.6 C 89 16 112/71 100
[2018-08-03] MEDS ORDERED: INSULIN GLARGINE SOLOSTAR 100 UNITS/ML 3 ML PEN SC STA ×2 (11:50→16:57)
[2018-08-03] MEDS: LISINOPRIL 10 MG TAB PO SCH (12:08)
--- NOTE | 2018-08-03 13:27 | Pharmacy Report ---
Pharmacy Glycemic Short Note 2 - Date of Service August 03, 2018 - Glycemic Short BSG Results (Last 24 hours): 08/02/18 08/02/18 08/02/18 13:51 15:03 16:03 Glucose POC Glucose 180 H 154 H 140 H 08/02/18 08/02/18 08/03/18 17:16 20:06 00:00 Glucose POC Glucose 172 H 222 H 365 H* 08/03/18 08/03/18 08/03/18 00:01 04:08 06:05 Glucose POC Glucose 339 H* 183 H 126 H 08/03/18 08/03/18 08/03/18 06:17 07:19 11:19 Glucose 106 H POC Glucose 93 173 H ASSESSMENT: * Mr. Rodriguez's BSGs look improved today. FBS was 93 and lunchtime BSG 173mg/dL. His PO intake has been stable. other labs WNL. * He was successfully transitioned off of the insulin infsn yesterday evening. His total daily insulin requirement is somewhere between 45-60 units/D. PLAN FOR INPATIENT GLYCEMIC CONTROL: * Hold outpatient oral diabetes medications * Basal insulin * 10 units of lantus was given this afternoon. I was slightly nervous with all of the lantus given yesterday that we may cause a low BSG, but he looks to be doing fine. He was in a highly insulin resistant state yesterday. * Bolus insulin * NovoLog per scale ACHS or Q6hrs while NPO * Goal Range: Low 110 mg/dL - High 140 mg/dL * Correction Factor: 30 mg/dL/unit * Nutritional / Prandial insulin per carb ratio of 1 unit per 10 grams CHO consumed PLAN FOR DISCHARGE: * Lantus 25 units QAM, further titrations per PCP * Humalog 6 units TIDM * transition to XR Metformin
[2018-08-03 15:26] LABS: BUN Creatinine Ratio 11.3 (10-20); Calcium 7.4 mg/dl (8.5-10.1); Creatinine Clr Calc Pharmacy 80.6 ml/min; Est GFR (African American) 91.5; Est GFR (Non-African American) 78.9
[2018-08-04 07:02] LABS: Basophils # (auto) 0.01 K/uL (0-0.2); Basophils % (auto) 0.3 %; Eosinophils # (auto) 0.22 K/uL (0-0.5); Eosinophils % (auto) 5.9 %; Hematocrit (blood only) 33.9 % (42-52); Hemoglobin 12.1 g/dL (14.0-18.0); Lymphocytes # (auto) 1.68 K/uL (1.2-3.4); Lymphocytes % (auto) 45.2 %; Mean Corpuscular Hgb Conc 35.7 g/dL (32-36); Mean Corpuscular Volume 80.7 fL (80-100); Mean Platelet Volume 10.6 fL (7.4-10.4); Monocytes # (auto) 0.32 K/uL (0.11-0.59); Monocytes % (auto) 8.6 %; Neutrophils # (auto) 1.49 K/uL (1.4-6.5); Platelet Count 217 K/uL (130-400); RDW Coefficient of Variation 12.2 % (11.5-14.5); RDW Standard Deviation 35.7 fL (36.4-46.3); White Blood Count 3.72 K/uL (4.8-10.8)
[2018-08-04 07:27] LABS: Albumin Level 3.2 gm/dl (3.4-5.0); BUN Creatinine Ratio 8.8 (10-20); Calcium 8.1 mg/dl (8.5-10.1); Creatinine Clr Calc Pharmacy 84.3 ml/min; Est GFR (African American) 96.7; Est GFR (Non-African American) 83.4; Potassium 3.7 mmol/L (3.5-5.1)
[2018-08-04 07:30] LABS: Albumin Globulin Ratio 1.1 (0.9-2); Bilirubin,Total 0.7 mg/dl (0.2-1); Globulin 2.9 gm/dl (2.5-4.0); Total Protein 6.1 gm/dl (6.4-8.2)
[2018-08-04] MEDS: ASPIRIN 81 MG ECTAB PO SCH (07:55)
[2018-08-04] MEDS: METOPROLOL SUCC 50MG EXT REL TAB PO SCH (07:55)
[2018-08-04] MEDS: ATORVASTATIN 40 MG TAB PO SCH (07:55)
[2018-08-04] MEDS: LISINOPRIL 10 MG TAB PO SCH (07:55)
[2018-08-04] MEDS: INSULIN ASPART 100 UNITS/ML 3 ML PEN SC SCH ×2 (07:56→11:48)
--- NOTE | 2018-08-04 08:15 | Hospitalist Progress Note ---
Date of Service August 04, 2018 Assessment & Plan (1) Hyperosmolarity due to secondary diabetes mellitus: Pt with hx recently diagnosed DM II and new onset metformin use presented to ER with c/o weakness, fatigue x 3 days with hyperglycemia readings at home. Pt had been fasting for Ramadan starting 07/22/18 and stopped fasting 2-3 days ago upon symptom onset. In ER pt afebrile, P: 112 down to 88, R: 20, BP: 148/105, 100% on RA (WBC: 6.8, H/H: 14.9/40.8, Na corrected to 135 with glucose of 604, CO2: 25, K: 4.0, A, beta-hydroxybutyric acid: 58, UA: 3+ glucose, 2+ ketones; VBG: pH: 7.3, pCO2: 51, pO2: 31, HCO3: 25) Diabetic hyperglycemic hyperosmolar syndrome with starvation ketosis on admission -the anion gap has closed with IV fluids and insulin -management of Diabetes Mellitus Type II with hyperglycemia as described below (2) YULIA (acute kidney injury): -Creatinine is 2.06 on admission with Baseline Cr: 1.1 with GFR >60 -patient's renal function improved after IV fluids -creatinine is 1.21 on 08/03/18 and IV fluids stopped. encourage oral hydration -creatinine is 1.07 on 08/04/18 Hypokalemia -serum potassium 2.9 on 08/03/18; received oral and IV potassium repletion -hypokalemia likely due to recent insulin use and fluid shifts -hypokalemia has resolved (3) Diabetes mellitus, type II: Diabetes Mellitus Type with hyperglycemia and not on public message service supervisor current use of insulin -outpatient HbA1c 7.6 on 06/20/18 and was on metformin at home -admission glucose above 600 on 08/01/18 -patient was started on insulin drip one 08/01/18 and continued to 08/02/18 -patient was transitioned to subcutaneous insulin starting 08/02/18 -HbA1c on 08/02/18 is very high as 12.1 and is being re-assessed. Patient does report of having sickle cell trait and perhaps this may have affected the lab results -patient was seen by community health educator and patient when medically ready will be discharged on insulin -Patient should take Lantus insulin 25 units daily and Humalog insulin 6units TID (TID means 3 times a day) with meals (the short acting insulin Humalog can be skipped if fasting during Ramadan), and to hold off metformin at this time until re-evaluation by primary care doctor while on insulin alone -patient have prescriptions of diabetes supplies Insulin pen needles - " (4mm) x 32G (90 per box and to get 2 boxes) OneTouch Verio test strips to check 4x/day. OneTouch Delica lancets to check 4x/day. -patient will need follow up to eye clinic for diabetic management of vision as outpatient Anemia Sickle cell trait -as per patient, he is aware he has history of sickle cell trait -patient denies sickle cell disease, never had any pain crisis or bone infarcts -trend hemoglobin levels as patient may have some anemia -no gross bleeding and no need for blood transfusion at this time -Hemoglobin stable as 12 Dyslipidemia -continue atorvastatin (4) HTN (hypertension): blood pressure controlled -HCTZ held during this hospital stay because of acute kidney injury recently -lisinopril 10 mg daily was resumed on 08/03/18 -Patient should avoid hydrochlorothiazide until follow up blood pressure check with primary care doctor. Patient should take lisinopril 10 mg daily for hypertension and renal protection from diabetes -continue metoprolol (5) Dyslipidemia: -continue atorvastatin DVT Prophylaxis -SCDs while in the hospital Discharge Diagnosis Diabetic hyperglycemic hyperosmolar syndrome with starvation ketosis on admission; Diabetes Mellitus Type with hyperglycemia and not on public message service supervisor current use of insulin; acute kidney injury; hypertension, hypokalemia; anemia [facility] follow up of diabetes mellitus management 08/08/2018 11:20 AM Provider Pat Perez DO [facility] 08/13/2018 5:40 PM Provider Pat Perez DO [facility] Patient should call to see an ophthalmology clinic appointment such as [facility] Address: [address] [place] [address] Patient has received glucometer Prescription for diabetes supplies Insulin pen needles - 32" (4mm) x 32G (90 per box so will need 2 boxes) OneTouch Verio test strips to check 4x/day. OneTouch Delica lancets to check 4x/day. Patient should take Lantus insulin 25 units daily and Humalog insulin 6units TID (TID means 3 times a day) with meals (the short acting insulin Humalog can be skipped if fasting during Ramadan), and to hold off metformin at this time until re-evaluation by primary care doctor while on insulin alone Patient should avoid hydrochlorothiazide until follow up blood pressure check with primary care doctor. Patient should take lisinopril 10 mg daily for hypertension and renal protection from diabetes Subjective patient eating at bedside. denies dizziness. denies lightheadedness. no nausea. no vomiting. no abdomen pain. no chest pain .no shortness of breath. we discussed at length about discharge plans and diabetes management. given that patient's glucose control during this hospital stay was on insulin alone, patient to hold off home dose metformin until follow up with primary care doctor for glucose re-check. blood pressure management also discussed. patient agrees with the plan Physical Exam Constitutional: WD/WN, vitals as above Eyes: PERRL, conjunctivae normal, anicteric sclerae EOM intact bilaterally ENMT: external ear and nose normal, oropharynx normal Neck: trachea midline, no thyromegaly normal visual inspection Respiratory: normal respiratory effort, lungs clear to auscultation Cardiovascular: RRR, no murmur, no edema Gastrointestinal (Abdomen): normal bowel sounds, soft, nontender, no hepatosplenomegaly Musculoskeletal: no cyanosis or clubbing, extremities motor strength 5/5 Head/Neck/Chest: normocephalic and head atraumatic Neurologic: PERRL, EOMI, accommodation nl, no face palsy, no dysarthria CN's II-XI intact bilaterally Psychiatric: A+Ox3, euthymic affect Results & Data Vital Signs (Past 12 Hours) Vital Signs Temp Pulse Resp BP Pulse Ox 08/04/18 07:02 36.7 C 76 18 109/69 99 08/04/18 03:08 36.8 C 79 17 124/74 100 08/03/18 23:20 36.5 C 79 18 120/84 100
--- NOTE | 2018-08-04 08:28 | Discharge Summary ---
Date of Service August 04, 2018 Admission HPI Per Admitting Provider Chief Complaint: Pt is 43 y/o M with PMH HTN, DM II presented to ER with c/o weakness and hyperglycemia. Pt reports on 07/22/18 he started fasting for ada. Pt states was feeling a little more tired. The past 3 days patient has reported increased fatigue and generalized weakness. Also complaining of urinary frequency, some blurry vision. He states he took his blood sugars at home and the meter was reading "high". Patient states was continuing to take his metformin. He stopped fasting 2-3 days ago. Patient was started on HCTZ 25 mg of metoprolol 50 mg in 06/2017 for HTN. He was then started on metformin 500 mg twice daily x one week then 1000mg twice daily and lisinopril 10mg daily on 07/09/18. Patient states when started taking metformin he was having some abdominal cramping which has improved. Reports he has been having some constipation last BM 4 days ago. Denies any nausea or vomiting. Denies fever/chills, diaphoresis, HOLLIDAY, dizziness, syncope, neck pain, CP, SOB, orthopnea, palpitations, cough, sore throat, choking, otalgia, rhinorrhea, paresthesias, weakness, extremity weakness, extremity edema, rashes, hematuria, dysuria. Admission Exam Per Admitting Provider General: no acute distress, WDWN Head: normocephalic, atraumatic Eyes: PERRL, EOM's intact, conjunctiva non-injected, anicteric ENT: normal inspection external ears, nose, mucous membranes dry Neck: supple, trachea midline Lungs: clear, no respiratory distress, no wheezing/rhonchi/rales CV: RRR, no murmur, no pretibial edema Abd: normal BS, soft, non-tender Ext: no cyanosis, no calf tenderness Neuro: A&O x 3, no focal deficits noted, normal affect Skin: warm, dry Principal Diagnosis Diabetic hyperglycemic hyperosmolar syndrome with starvation ketosis on admission; Diabetes Mellitus Type with hyperglycemia and not on template layout worker current use of insulin; acute kidney injury; hypertension, hypokalemia; anemia Discharge Exam Constitutional WD/WN, vitals as above Eyes PERRL, conjunctivae normal, anicteric sclerae EOM intact bilaterally ENMT external ear and nose normal, oropharynx normal Neck trachea midline, no thyromegaly normal visual inspection Respiratory normal respiratory effort, lungs clear to auscultation Cardiovascular RRR, no murmur, no edema Gastrointestinal (Abdomen) normal bowel sounds, soft, nontender, no hepatosplenomegaly Musculoskeletal no cyanosis or clubbing, extremities motor strength 5/5 Head/Neck/Chest: normocephalic and head atraumatic Neurologic PERRL, EOMI, accommodation nl, no face palsy, no dysarthria CN's II-XI intact bilaterally Psychiatric A+Ox3, euthymic affect Discharge Data Allergies Allergy/AdvReac Type Severity Reaction Status Date / Time hydroxychloroquine Allergy Unknown Verified 08/01/18 13:49 Consultations 08/01/18 14:14 ED Decision to Admit Stat Hospital Course (1) Hyperosmolarity due to secondary diabetes mellitus: Pt with hx recently diagnosed DM II and new onset metformin use presented to ER with c/o weakness, fatigue x 3 days with hyperglycemia readings at home. Pt had been fasting for adan starting 07/22/18 and stopped fasting 2-3 days ago upon symptom onset. In ER pt afebrile, P: 112 down to 88, R: 20, BP: 148/105, 100% on RA (WBC: 6.8, H/H: 14.9/40.8, Na corrected to 135 with glucose of 604, CO2: 25, K: 4.0, A, beta-hydroxybutyric acid: 58, UA: 3+ glucose, 2+ ketones; VBG: pH: 7.3, pCO2: 51, pO2: 31, HCO3: 25) Diabetic hyperglycemic hyperosmolar syndrome with starvation ketosis on admission -the anion gap has closed with IV fluids and insulin -management of Diabetes Mellitus Type II with hyperglycemia as described below (2) YULIA (acute kidney injury): -Creatinine is 2.06 on admission with Baseline Cr: 1.1 with GFR >60 -patient's renal function improved after IV fluids -creatinine is 1.21 on 08/03/18 and IV fluids stopped. encourage oral hydration -creatinine is 1.07 on 08/04/18 Hypokalemia -serum potassium 2.9 on 08/03/18; received oral and IV potassium repletion -hypokalemia likely due to recent insulin use and fluid shifts -hypokalemia has resolved (3) Diabetes mellitus, type II: Diabetes Mellitus Type with hyperglycemia and not on template layout worker current use of insulin -outpatient HbA1c 7.6 on 06/20/18 and was on metformin at home -admission glucose above 600 on 08/01/18 -patient was started on insulin drip one 08/01/18 and continued to 08/02/18 -patient was transitioned to subcutaneous insulin starting 08/02/18 -HbA1c on 08/02/18 is very high as 12.1 and is being re-assessed. Patient does report of having sickle cell trait and perhaps this may have affected the lab results -patient was seen by unit educator and patient when medically ready will be discharged on insulin -Patient should take Lantus insulin 25 units daily and Humalog insulin 6units TID (TID means 3 times a day) with meals (the short acting insulin Humalog can be skipped if fasting during ada), and to hold off metformin at this time until re-evaluation by primary care doctor while on insulin alone -patient have prescriptions of diabetes supplies Insulin pen needles - " (4mm) x 32G (90 per box and to get 2 boxes) OneTouch Verio test strips to check 4x/day. OneTouch Delica lancets to check 4x/day. -patient will need follow up to eye clinic for diabetic management of vision as outpatient Anemia Sickle cell trait -as per patient, he is aware he has history of sickle cell trait -patient denies sickle cell disease, never had any pain crisis or bone infarcts -trend hemoglobin levels as patient may have some anemia -no gross bleeding and no need for blood transfusion at this time -Hemoglobin stable as 12 Dyslipidemia -continue atorvastatin (4) HTN (hypertension): blood pressure controlled -HCTZ held during this hospital stay because of acute kidney injury recently -lisinopril 10 mg daily was resumed on 08/03/18 -Patient should avoid hydrochlorothiazide until follow up blood pressure check with primary care doctor. Patient should take lisinopril 10 mg daily for hypertension and renal protection from diabetes -continue metoprolol (5) Dyslipidemia: -continue atorvastatin DVT Prophylaxis -SCDs while in the hospital Discharge Diagnosis Diabetic hyperglycemic hyperosmolar syndrome with starvation ketosis on admission; Diabetes Mellitus Type with hyperglycemia and not on alf current use of insulin; acute kidney injury; hypertension, hypokalemia; anemia Patient has close primary care [facility] for follow up of diabetes mellitus management 08/08/2018 11:20 AM Provider Pat Perez DO [facility] 08/13/2018 5:40 PM Provider Pat Perez DO [facility] Patient should call to see an ophthalmology clinic appointment such as [facility] Address: [address] [facility], [place] [address] Patient has received glucometer Prescription for diabetes supplies Insulin pen needles - " (4mm) x 32G (90 per box so will need 2 boxes) OneTouch Verio test strips to check 4x/day. OneTouch Delica lancets to check 4x/day. Patient should take Lantus insulin 25 units daily and Humalog insulin 6units TID (TID means 3 times a day) with meals (the short acting insulin Humalog can be skipped if fasting during Ramadan), and to hold off metformin at this time until re-evaluation by primary care doctor while on insulin alone Patient should avoid hydrochlorothiazide until follow up blood pressure check with primary care doctor. Patient should take lisinopril 10 mg daily for hypertension and renal protection from diabetes Total Time Total Time Spent Total Time Spent (In Minutes): 40 minutes Total Time Includes: Examination of the Patient, Discharge Planning, Medication Reconciliation and Communication With Other Providers Discharge Plan Discharge Items Patient Disposition: Home - Self-Care Reason For Visit: HYPERGLYCEMIA Discharge Diagnosis: Diabetic hyperglycemic hyperosmolar syndrome with starvation ketosis on admission; Diabetes Mellitus Type with hyperglycemia and not on template layout worker current use of insulin; acute kidney injury; hypertension, hypokalemia; anemia Condition: Good Discharge Goals: Improve disease control Activity: Resume your previous activity Non-emergency contact: Primary Care Provider Call non-emergency contact if: you have any medication questions Follow-up/Referrals: Pat Perez DO [Primary Care Provider] - Diet: Carb Consistent or DM2 Addtl Provider Instructions: Patient has close primary care [facility] appointments for follow up of diabetes mellitus management 08/08/2018 11:20 AM Provider Pat Perez DO [facility] 08/13/2018 5:40 PM Provider DO [facility] Patient should call to see an ophthalmology clinic appointment such as [facility] Address: [address], [place] [address] Patient has received glucometer Prescription for diabetes supplies Insulin pen needles - 5/32" (4mm) x 32G (90 per box so will need 2 boxes) OneTouch Verio test strips to check 4x/day. OneTouch Delica lancets to check 4x/day. Patient should take Lantus insulin 25 units daily and Humalog insulin 6units TID (TID means 3 times a day) with meals (the short acting insulin Humalog can be skipped if fasting during Ramadan), and to hold off metformin at this time until re-evaluation by primary care doctor while on insulin alone Patient should avoid hydrochlorothiazide until follow up blood pressure check with primary care doctor. Patient should take lisinopril 10 mg daily for hypertension and renal protection from diabetes Prescriptions: New lisinopril 10 mg Tablet 10 mg PO QAM 30 Days Qty: 30 RF: 0 Lantus Solostar U-100 Insulin 100 unit/mL (3 mL) Insulin Pen 25 unit SC QAM 30 Days Qty: 7.5 RF: 0 Humalog Mix 75-25(U-100)Insuln 100 unit/mL (75-25) Suspension 6 unit SC TID 30 Days Qty: 6 RF: 0 Continued metoprolol succinate 50 mg tablet extended release 24 hr 50 mg PO QAM RF: 0 aspirin [Aspir-81] 81 mg Tablet,Delayed Release (Dr/Ec) 81 mg PO QAM RF: 0 atorvastatin 40 mg tablet 40 mg PO QAM RF: 0 Discontinued lisinopril 10 mg tablet 10 mg PO QAM RF: 0 hydrochlorothiazide 25 mg tablet 25 mg PO QAM RF: 0 metformin 500 mg tablet 1,000 mg PO BIDM RF: 0 Stand-Alone Forms: [facility] Discharge Orders: Discharge Order (Routine); Ordered 08/04/18 Ordered By: Jonny Melgar Admission Data Admit Date/Time: 08/01/18 15:06 Attending Provider: Jonny Melgar Admit Provider: Jose L Giles Primary Care Provider: Pat Perez. Other Providers: Jose L Giles Service: Telemetry
[2018-08-04] MEDS ORDERED: INSULIN GLARGINE SOLOSTAR 100 UNITS/ML 3 ML PEN SC SCH (09:00)
[2018-08-04] MEDS ORDERED: INSULIN HUMAN LISPRO (humaLOG) 100 UNITS/ML VIAL SC SCH (11:30)
[2018-08-04 12:03] VITALS: BP 119/75; PULSE 80; TEMP 98.4; O2SAT 96
[2018-08-04] MEDS ORDERED: INSULIN ASPART 100 UNITS/ML 3 ML PEN SC SCH (16:30)
[2018-08-06 03:05] LABS: EAG mmol/L 19.4 CALC
== END 2018-08-04 15:00 | disposition home or self-care (01) | DRG 638 ==
LOC: ED 12:19 → 2S 15:06